=== PATIENT | female | born 1985 | race Caucasian/White ===

== ENCOUNTER 2023-02-06 18:25 | Emergency (ER) | payer MEDICAID ==
[~2023-02-06] VITALS: Ht 160 cm; Wt 108.2 kg
[2023-02-06 18:26] VITALS: TEMP 98.1
[2023-02-06 20:29] VITALS: BP 145/78; PULSE 76
== END 2023-02-06 20:30 | disposition home or self-care (01) ==
LOC: COL.ER 18:25
DX: S80.01XA Contusion of right knee, initial encounter (principal); Z87.891 Personal history of nicotine dependence; Y00.XXXA Assault by blunt object, initial encounter
CPT/HCPCS: L1846

== ENCOUNTER 2023-12-21 20:45 | Emergency (ER) | payer MEDICAID ==
[~2023-12-21] VITALS: Ht 165.1 cm; Wt 96.6 kg
[2023-12-21 20:50] VITALS: TEMP 98.3
[2023-12-21] MEDS ORDERED: Albuterol 0.083% Neb Soln 2.5 MG/3 ML UD IH SCH (21:45)
[2023-12-21 22:25] VITALS: BP 102/68
[2023-12-21] MEDS ORDERED: ZITHROMAX Z PA250 MG PO (23:01)
[2023-12-21] MEDS ORDERED: XOPENEX 1.1.25 MG/3 IH (23:01)
[2023-12-21] MEDS ORDERED: NEB MC (23:01)
[2023-12-21] MEDS ORDERED: BROMFED DM COU118 ML PO (23:01)
[2023-12-21] MEDS ORDERED: XOPENEX HF0.045 MG/A IH (23:01)
[2023-12-21 23:11] VITALS: PULSE 97
== END 2023-12-21 23:12 | disposition home or self-care (01) ==
LOC: COL.ER 20:45
DX: J40 Bronchitis, not specified as acute or chronic (principal)